=== PATIENT | male | born 1945 | race Caucasian/White ===

== ENCOUNTER → 2024-01-20 08:04 | Outpatient (REF) | payer BC, SELFPAY | LOC: RAD 08:04 | PROVIDERS: ATTENDING PHYSICIAN Surgery Vascular Surgery | DX: I73.9 Peripheral vascular disease, unspecified (principal); I65.23 Occlusion and stenosis of bilateral carotid arteries | CPT/HCPCS: 93880; 93922; 93925; 93978 ==

== ENCOUNTER 2024-01-27 12:28 | Emergency (ER) | payer BC, SELFPAY ==
[2024-01-27 12:39] VITALS: BP 120/67
[2024-01-27 13:07] VITALS: BMI 28.7
[2024-01-27 13:09] VITALS: BP 132/58
[2024-01-27] MEDS: NSS 500 IV (13:36)
[2024-01-27 13:45] LABS: % Basophils 0.3 % (0-2); % Eosinophils 0.2 % (0-6); % Immature Granulocytes 0.5 % (0-0.5); % Lymphocytes 1.5 % (20.5-51.1); % Monocytes 5.3 % (1.7-9.3); % Neutrophils 92.2 % (42.2-75.2); Absolute Immature Granulocytes 0.1 10^3/uL (0-0.05); Absolute Lymphocytes 0.2 10^3/uL (1.2-3.4); Absolute Monocytes 0.7 10^3/uL (0.1-0.6); Absolute Neutrophils 11.6 10^3/uL (1.4-6.5); Hematocrit 48.9 % (39.0-52.0); Hemoglobin 16.5 g/dL (13.0-18.0); Mean Corp Hgb Conc. 33.7 g/dL (33.0-37.0); Mean Corpuscular Hgb 29.7 pg (27.0-31.0); Mean Corpuscular Volume 87.9 fL (80.0-94.0); Mean Platelet Volume 10.6 fL (7.4-10.4); Nucleated Red Blood Cells % 0 % (-); Platelet Count 141 10^3/uL (130-400); Red Blood Cell Count 5.56 10^6/uL (4.70-6.10); White Blood Cell Count 12.6 10^3/uL (4.8-10.8)
[2024-01-27] MEDS: TYLENOL 1000 MG PO (13:51)
[2024-01-27 13:58] LABS: ALT (SGPT) 36 U/L (0-50); AST (SGOT) 29 U/L (17-59); Albumin 4.4 g/dl (3.5-5.0); Alkaline Phosphatase 103 U/L (38-126); Blood Urea Nitrogen 27 mg/dl (9-20); Calcium 9.1 mg/dl (8.4-10.2); Carbon Dioxide 25 mmol/L (22-30); Chloride 106 mmol/L (98-107); Estimated Creatinine Clearance 88 ml/min; Glucose 193 mg/dl (70-99); Lipase 23 U/L (23-300); Potassium 4.2 mmol/L (3.5-5.1); Sodium 142 mmol/L (135-145); Total Bilirubin 0.8 mg/dl (0.2-1.3); Total Protein 6.9 g/dl (6.3-8.2); eGFR > 60.00
[2024-01-27 14:10] VITALS: BP 129/68
[2024-01-27 14:10] LABS: Troponin I < 0.012 ng/ml
--- NOTE | 2024-01-27 14:35 | ED.GENMED ---
History of Present Illness
General
Chief Complaint: Abdominal Symptoms
Time Seen by Provider: 01/27/24 12:55
History of Present Illness
History of Present Illness:
78-year-old male with history of CAD status post CABG, hypertension, diabetes presenting for nausea, vomiting diarrhea. Patient reports symptoms started acutely last evening with nausea and vomiting. He reports upwards of 14 episodes of vomiting,
and then started to have diarrhea. Notes that last episode of vomiting was early this morning, around 3 AM. Last episode of diarrhea was prior to arrival. He went to urgent care, was administered Zofran and told to go to the emergency department.
Denies any associate abdominal pain, notes some soreness and vomiting. Denies any known sick contacts or unusual food. Denies fever. Denies chest pain or difficulty breathing. Reports that he is feeling better after the Zofran at urgent care.
Denies additional acute medical complaints
Past History
Past History
ED Past Medical History: CAD, CT and Other (Bruit migraine headaches, cluster headaches, hypertension, pneumonia, borderline diabetes, diverticulosis, skin cancer, GERD, anxiety)
ED Past Surgical History: Cardiac and Other (Hernia)
Social History
Tobacco: Former smoker
Alcohol: Occasional
Personal:
Living: with family
Family History
Family History: CAD and Other (Father with a stroke)
Phy Exam
Physical Exam
Physical Exam:
GENERAL: Alert , in no apparent distress
EYE: pupils equal and reactive
NECK: Supple
ENT: o/p clr, mmm.
CARDIAC: Regular rate and rhythm .
LUNGS: Clear breath sounds bilaterally, no acute respiratory distress, no wheezes/rales/rhonchi
ABDOMEN: Soft, without focal tenderness
NEUROLOGICAL: Alert and oriented, no focal neuro deficits
SKIN: Warm and dry, skin intact.
MUSCULOSKELETAL: No edema, well perfused.
PSYCH: Normal and appropriate interaction.
Course
Orders/Labs/Results
Orders:
Orders
01/27/24 13:18
0.9% Sodium Chloride 500 ml [Nss] 500 ml IV BOLUS
01/27/24 13:35
Complete Blood Count/With Diff Urgent
Comprehensive Metabolic Panel Urgent
Lipase Urgent
Troponin I Urgent
01/27/24 13:42
Acetaminophen [Tylenol] 1,000 mg PO NOW STA
Abnormal Lab Results
01/27/24
13:35
WBC 12.6 H 10^3/uL
(4.8-10.8)
RDW 15.0 H %
(11.5-14.5)
MPV 10.6 H fL
(7.4-10.4)
Abs Immat Gran (auto) 0.1 H 10^3/uL
(0-0.05)
Absolute Neuts (auto) 11.6 H 10^3/uL
(1.4-6.5)
Absolute Lymphs (auto) 0.2 L 10^3/uL
(1.2-3.4)
Absolute Monos (auto) 0.7 H 10^3/uL
(0.1-0.6)
Neutrophils % 92.2 H %
(42.2-75.2)
Lymphocytes % 1.5 L %
(20.5-51.1)
BUN 27 H mg/dl
(9-20)
Glucose 193 H mg/dl
(70-99)
01/27/24 13:35
01/27/24 13:35
Vital Signs
Initial and Last Documented VS:
Initial Vital Signs
Temp Pulse Resp BP Pulse Ox
98.5 F 103 17 120/67 98
01/27/24 12:39 01/27/24 12:39 01/27/24 12:39 01/27/24 12:39 01/27/24 12:39
Last Documented Vital Signs
Temp Pulse Resp BP Pulse Ox
98.5 F 103 17 129/68 98
01/27/24 12:39 01/27/24 12:39 01/27/24 12:39 01/27/24 14:10 01/27/24 14:10
MDM/Problems Addressed
MDM/Problems Addressed:
78-year-old male with history of CAD status post CABG, hypertension, diabetes presenting for nausea, vomiting, diarrhea. Vital signs on arrival are significant for mild tachycardia.
On exam, patient well-appearing, mildly dry mucous membranes. Benign cardiac and pulmonary exam. No focal tenderness to the abdomen. Symptom presentation and physical exam appears most consistent with viral gastroenteritis. Reassuring that
patient's symptoms are improving. With laboratory analysis and treat patient with IV fluids and Zofran. Do not feel patient requires any advanced imaging with no tenderness to the abdomen.
15:00- Labs show mild leukocytosis, suspect reactive from patient's symptoms. Patient tolerating p.o. Patient continues to express symptom improvement. Labs otherwise unremarkable. Feel safe discharge with continued outpatient supportive
therapy. Strict return precautions communicated and patient verbalized understanding
*Critical Care Note
Total Time (30-74mins, 75-104mins- exclusive of procedures): Not Applicable
ED Attending Note
-
Portions of this chart may have been created with voice recognition software.� Occasional wrong word or��sound alike� substitutions may have occurred due to the inherent limitations of voice recognition software.
Discharge Plan
Departure
Patient Disposition: Home (Routine Discharge)
Date of Disposition: 01/27/24
Time of Disposition: 14:59
Patient with high blood pressure during this ER visit?: No
Condition: Good
Discharge Problem:
Viral gastroenteritis
Instructions: Viral gastroenteritis in adults, Nausea and Vomiting, Adult (DC)
Prescriptions:
New
ondansetron 4 mg Tablet,Disintegrating
4 mg PO TIDPRN PRN (Reason: nausea/vomiting) Qty: 6 0RF
No Action
amlodipine 10 mg Tablet
10 mg PO DAILY
insulin degludec [Tresiba FlexTouch U-100] 100 unit/mL (3 mL) Insulin Pen
10 unit SC HS
Patient Comments:
PT TOOK 5 UNITS 11/17 2299
Trulicity 0.75 mg/0.5 mL Pen Injector
0.75 mg SC MO
Rx Instructions:
Wednesday night
carvedilol 12.5 MG tablet
12.5 mg PO BID
pantoprazole 40 MG tablet,delayed release (DR/EC)
40 mg PO DAILY
Januvia 100 MG tablet
100 mg PO DAILY
Farxiga 5 MG tablet
5 mg PO DAILY
clopidogrel 75 mg Tablet
75 mg PO DAILY
nitroglycerin [Nitrostat] 0.4 mg Tablet, Sublingual
0.4 mg SUBLINGUAL Q5M PRN (Reason: Chest Pain)
ProAir RespiClick 90 mcg/actuation Aerosol Powdr Breath Activated
1 inh INHALATION PRN PRN (Reason: SOB)
atorvastatin 80 MG tablet
80 mg PO HS
alprazolam 0.5 MG tablet
0.5 mg PO DAILY
Rx Instructions:
PT TOOK 0.25 MG TODAY
aspirin 81 MG tablet,chewable
81 mg PO HS
glipizide 5 mg tablet extended release 24hr
5 mg PO DAILY
cholecalciferol (vitamin D3) [Vitamin D3] 125 mcg (5,000 unit) Tablet
125 mcg PO DAILY PRN (Reason: [facility])
polyethylene glycol 3350 [Miralax] 17 gram Powder In Packet
17 g PO DAILY PRN (Reason: CONSTIPATION)
ferrous sulfate [Iron (ferrous sulfate)] 325 mg (65 mg iron) Tablet
325 mg PO DAILY
magnesium citrate 100 mg Tablet
100 mg PO DAILY PRN (Reason: [facility])
coenzyme Q10 [Co Q-10] 400 mg Capsule
400 mg PO DAILY
Referrals:
Ricci Santos MD [Family Provider] -
Activity Restrictions/Additional Instructions:
Please follow-up with your primary care doctor. Return to the emergency department with any development of abdominal pain, persistent nausea and vomiting with inability to tolerate food or liquid by mouth, dizziness or lightheadedness or feeling
like you are going to pass out, chest pain or difficulty breathing, fever, concern for dehydration
Interventions
Interventions:
*Risk Screen - Suicide Last Done: 01/27/24 13:07
*General Assessment Last Done: 01/27/24 12:39
*Neglect/Abuse Screening Last Done: 01/27/24 13:07
ED- Fall Risk Assessment Last Done: 01/27/24 13:10
*ED COVID-19 Vaccine History Last Done: 01/27/24 12:39
*Nursing Disposition Last Done: 01/27/24 16:28
MK-Jvizdh-Bcfqlswqes Assessment Last Done: 01/27/24 13:08
Discharge Date and Time
Discharge Date/Time: 01/27/24 16:29
Print Language: SPANISH
== END 2024-01-27 16:29 | disposition home or self-care (01) ==
LOC: EMR 12:28
PROVIDERS: EMERGENCY PHYSICIAN Student in an Organized Health Care Education/Training Program; FAMILY PHYSICIAN Family Medicine
DX: A08.4 Viral intestinal infection, unspecified (principal); I25.10 Atherosclerotic heart disease of native coronary artery without angina pectoris; I10 Essential (primary) hypertension; E11.9 Type 2 diabetes mellitus without complications; Z87.891 Personal history of nicotine dependence
CPT/HCPCS: 99284; 96360; 80053; 83690; 84484; 85025

== ENCOUNTER → 2024-08-09 14:20 | Outpatient (REF) | payer MEDICARE, OTHER, SELFPAY | LOC: DHVS 14:20 | PROVIDERS: ATTENDING PHYSICIAN Surgery Vascular Surgery | DX: I65.23 Occlusion and stenosis of bilateral carotid arteries (principal); I73.9 Peripheral vascular disease, unspecified | CPT/HCPCS: 93880; 93922; 93925 ==

== ENCOUNTER 2024-08-24 14:19 | Emergency (ER) | payer MEDICARE, OTHER, SELFPAY ==
[2024-08-24 14:27] VITALS: BP 149/99
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
[2024-08-24 14:54] LABS: % Basophils 0.7 % (0-2); % Eosinophils 1.3 % (0-6); % Immature Granulocytes 0.3 % (0-0.5); % Lymphocytes 20.1 % (20.5-51.1); % Monocytes 8.7 % (1.7-9.3); % Neutrophils 68.9 % (42.2-75.2); Absolute Basophils 0.1 10^3/uL (0-0.2); Absolute Eosinophils 0.1 10^3/uL (0-0.7); Absolute Monocytes 0.9 10^3/uL (0.1-0.6); Absolute Neutrophils 6.9 10^3/uL (1.4-6.5); Hematocrit 54.9 % (39.0-52.0); Hemoglobin 17.7 g/dL (13.0-18.0); Mean Corp Hgb Conc. 32.2 g/dL (33.0-37.0); Mean Corpuscular Hgb 29.7 pg (27.0-31.0); Mean Corpuscular Volume 92.3 fL (80.0-94.0); Mean Platelet Volume 10.5 fL (7.4-10.4); Nucleated Red Blood Cells % 0 % (-); Platelet Count 154 10^3/uL (130-400); Red Blood Cell Count 5.95 10^6/uL (4.70-6.10); Red Cell Dist. Width 14.6 % (11.5-14.5); White Blood Cell Count 10.1 10^3/uL (4.8-10.8)
[2024-08-24 15:12] LABS: ALT (SGPT) 40 U/L (0-50); AST (SGOT) 33 U/L (17-59); Albumin 5.2 g/dl (3.5-5.0); Alkaline Phosphatase 112 U/L (38-126); Blood Urea Nitrogen 25 mg/dl (9-20); Calcium 9.9 mg/dl (8.4-10.2); Carbon Dioxide 30 mmol/L (22-30); Chloride 103 mmol/L (98-107); Glucose 171 mg/dl (70-99); Magnesium 2.2 mg/dl (1.6-2.3); Potassium 4.7 mmol/L (3.5-5.1); Sodium 145 mmol/L (135-145); Total Bilirubin 0.7 mg/dl (0.2-1.3); Total Protein 7.7 g/dl (6.3-8.2); eGFR > 60.00
[2024-08-24 15:20] LABS: Lipase 67 U/L (23-300)
[2024-08-24 15:42] LABS: Troponin I < 0.012 ng/ml
[2024-08-24 18:05] VITALS: BP 148/73
== END 2024-08-24 19:01 | disposition home or self-care (01) ==
LOC: EMR 14:19
PROVIDERS: EMERGENCY PHYSICIAN Student in an Organized Health Care Education/Training Program; FAMILY PHYSICIAN Surgery Vascular Surgery
DX: R07.9 Chest pain, unspecified (principal); I25.10 Atherosclerotic heart disease of native coronary artery without angina pectoris; I10 Essential (primary) hypertension; K21.9 Gastro-esophageal reflux disease without esophagitis; Z85.828 Personal history of other malignant neoplasm of skin; Z87.891 Personal history of nicotine dependence; Z95.5 Presence of coronary angioplasty implant and graft; Z82.49 Family history of ischemic heart disease and other diseases of the circulatory system
CPT/HCPCS: 99285; 71046; 80053; 83690; 83735; 84484; 85025; 93005

== ENCOUNTER → 2025-02-26 06:58 | Outpatient (REF) | payer MEDICARE, OTHER, SELFPAY | LOC: RAD 06:58 | PROVIDERS: ATTENDING PHYSICIAN Physician Assistant; FAMILY PHYSICIAN Family Medicine; REFERRING PHYSICIAN Surgery Vascular Surgery | DX: I73.9 Peripheral vascular disease, unspecified (principal); I65.23 Occlusion and stenosis of bilateral carotid arteries | CPT/HCPCS: 93880; 93922; 93925; 93978 ==

== ENCOUNTER → 2025-03-02 13:56 | Outpatient (REF) | payer MEDICARE, OTHER, SELFPAY | LOC: RAD 13:56 | PROVIDERS: ATTENDING PHYSICIAN Surgery Vascular Surgery; FAMILY PHYSICIAN Family Medicine | DX: I65.21 Occlusion and stenosis of right carotid artery (principal) | CPT/HCPCS: 70496; 70498; Q9967 ==

== ENCOUNTER 2025-04-12 08:12 | Inpatient (IN) | payer MEDICARE, OTHER, SELFPAY ==
[2025-04-05 09:45] VITALS: BMI 29.2
[2025-04-05 10:42] LABS: Hematocrit 52.2 % (39.0-52.0); Hemoglobin 17.1 g/dL (13.0-18.0); Mean Corp Hgb Conc. 32.8 g/dL (33.0-37.0); Mean Corpuscular Volume 90.3 fL (80.0-94.0); Nucleated Red Blood Cells % 0 % (-); Platelet Count 141 10^3/uL (130-400); Red Cell Dist. Width 14.5 % (11.5-14.5)
[2025-04-05 10:52] LABS: INR 0.91; PT 12.8 Sec (11.4-14.6)
[2025-04-05 10:53] LABS: APTT 30.6 Sec (23.4-35.0)
[2025-04-05 10:56] LABS: Blood Urea Nitrogen 18 mg/dl (9-20); Calcium 9.5 mg/dl (8.4-10.2); Carbon Dioxide 32 mmol/L (22-30); Chloride 103 mmol/L (98-107); Estimated Creatinine Clearance 101 ml/min; Glucose 88 mg/dl (70-99); Potassium 4.8 mmol/L (3.5-5.1); Sodium 141 mmol/L (135-145); eGFR > 60.00
[2025-04-12 08:34] VITALS: BMI 28.5
[2025-04-12 08:56] VITALS: BP 153/77
[2025-04-12 09:18] LABS: Glucose - Point of Care 136 mg/dl (70-99)
[2025-04-12] MEDS: PERIDEX 0.12% ORAL RINSE 15 ML PO (09:22)
[2025-04-12] MEDS: BACTROBAN NASAL 1 GRAM NASAL (09:22)
--- NOTE | 2025-04-12 09:45 | W.SUR.PREOP ---
Pre-Operative Surgical Note
-
I have examined this patient prior to the performance of the scheduled procedure.
The patient's condition is unchanged from the time of the current History and
Physical and the patient is able to undergo the scheduled procedure.
[2025-04-12 11:51] LABS: ACT-LR - POC 392 Seconds (116-155)
--- NOTE | 2025-04-12 12:31 | OR.RPT ---
Operative Report
Operative Report
PROCEDURE DATE: 04/12/2025
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
Postoperative diagnosis: same
Procedure:
1. Open exposure of right common carotid artery.
2. Transcarotid right carotid artery revascularization with stent (TCAR) with Enroute 7-9 mm reverse tapered x 30mm self-expanding stent, and utilizing Enroute CHECK CASHIER flow reversal intraprocedural neuro protection.
3. Intraoperative EEG/SSEP monitoring.
4. Supervision and interpretation
Surgeon: Randy
Receptionist/Telephone Operator: YENNIFER Hoff, required for all aspects of procedure including assistance with traction/countertraction, assistance with closure.
Complications: None
Anesthesia: General
Flow Reversal Time: 6 minutes
Fluoroscopy:
Time: 2.9 minutes
Dose: 27mGy
DAP: 4.44
Indications for procedure:
History of right carotid endarterectomy. Initial postoperative imaging had demonstrated excellent result. Over the course of months to years, surveillance imaging demonstrated progressive severe recurrent stenosis. Risk/benefits/alternatives of
TCAR were fully discussed. Patient understood and wished to proceed.
Description of procedure:
Patient was identified brought to the operating room placed on the table in supine position. After the adequate administration of anesthesia and perioperative antibiotics he was prepped and draped in the standard surgical fashion. A standard
preoperative timeout was undertaken and everybody was in agreement the plan. A longitudinal incision was made at the base of the right neck between the heads of the sternocleidomastoid muscle just superior to the clavicle. This incision was
carried through the skin subcutaneous tissue. Using the electrocautery dissection was carried through the platysma muscle layer and then in the plane between the heads of the sternocleidomastoid muscle. Then using a combination of sharp dissection
with the Metzenbaum scissors and electrocautery I dissected along the anterior medial border of the internal jugular vein. The common carotid artery was identified and carefully dissected away from the surrounding structures take great care to
avoid any injury to the structures. A vessel loop was passed around it. The common carotid artery was dissected circumferentially only in the proximal portion of the exposed artery, and the anterior surface was dissected for another 2 cm. Next, a
5-0 Prolene pursestring stitch was placed on the anterior middle surface of the common carotid artery at the anticipated puncture/cannulation site. The patient was given 9000 units of intravenous heparin.
Next, the left common femoral vein was punctured with a micropuncture kit under direct duplex ultrasound guidance. An 8 [place] venous sheath was placed over 0.035 inch wire into the vein. The sheath was flushed.
Next, while maintaining anterior tension on the vessel loop (single looped), the common carotid artery was punctured with a micropuncture needle (premarked) to only 1 cm and a premarked 0.014 inch wire was inserted and then the needle was exchanged
out for a premarked micropuncture sheath and advanced to 3 cm nick. The dilator and wire were then removed. Right anterior oblique angiogram was performed. This delineated the carotid bifurcation. It confirmed the severe stenosis in the proximal
internal carotid artery. The carotid bifurcation was marked on the screen. Note the external carotid artery was chronically occluded. I then advanced a 0.035 inch wire with a J curve at the tip. This was stopped just short of the bifurcation. I
then exchanged the micropuncture sheath out for the 8 [place] arterial [place] [address] sheath, which was advanced to the footplate under fluoroscopy with careful vigilance of the distal tip of the wire. Once advanced to the footplate, the introducer and
wire were removed. The tension from the vessel loop was released. And the sheath was secured to the skin with silk suture. The sheath was burped back and also flushed carefully. Next repeat imaging was undertaken confirming the best angulation
of the gantry for imaging. At this point, the angioplasty balloon and stent were prepared. We pause to confirm the plan regarding balloon/stent, and confirmed adequate ACT over 250. Next, I connected the arterial sheath to the venous sheath with
the filter section. As such passive flow reversal was initiated. There were no evidence of any EEG or SSEP changes. We flushed the venous sheath to confirm adequate passive flow reversal.
At this point given that we were otherwise ready, I tightened my double looped vessel loop on the common carotid artery thereby initiating active flow reversal. Again I flushed the venous sheath to confirm active flow reversal. There was no EEG or
SSEP changes. I now used a precurved 0.014 inch wire and roadmap assisted fluoroscopy guidance to cannulate the internal carotid artery carefully. I was able to gain access into the distal cervical/proximal intracranial internal carotid artery.
Next I used a balloon which was a 5 mm x 30 mm standard angioplasty balloon. I then pre-angioplastied the stenosis. The patient had been given glycopyrrolate to prevent any baroreceptor mediated bradycardia. The patient's blood pressure had also
been optimized after discussion with our anesthesiology colleagues prior to initiation of flow reversal. I then quickly exchanged out my balloon catheter for the stent 7-9 mm reverse tapered x 30mm Enroute stent. The stent was positioned under
roadmap guidance. When I was happy with the positioning I then unsheathed in the standard fashion. The stent delivery device was then removed. Completion angiography was undertaken after 1 to 2 minutes of waiting after deployment of the stent for
the flow reversal to take effect. Completion angiogram demonstrated excellent result and it was done in 2 obliquities to confirm. No residual stenosis was noted. Good intracranial filling was noted. At this point I was very satisfied. The 0.014
inch wire was then removed from the internal carotid artery. Next, the common carotid artery was unclamped. Finally I disconnected the flow reversal circuit.
Now, I tied down my 5-0 Prolene pursestring suture on the common carotid artery while removing the sheath. We gave protamine to reverse the heparin. I irrigated the incision site and confirmed full hemostasis. Then, we closed in layers using
single lmphhd-ed-isahp 2-0 Vicryl to reapproximate the sternocleidomastoid heads. Then used 3-0 Vicryl platysma muscle running layer followed by 4-0 Monocryl subcuticular running stitch. Dermabond was applied. The femoral vein sheath was also
removed and manual pressure was applied to that site and hemostasis was noted there as well. The patient tolerated the procedure well. He awoke moving all 4 extremities to command.
[2025-04-12 12:45] VITALS: BP 133/73; BP 153/77
[2025-04-12 13:00] VITALS: BP 152/72
[2025-04-12] MEDS: DILAUDID 0.25 MG IV (13:01)
[2025-04-12 13:02] LABS: Glucose - Point of Care 143 mg/dl (70-99)
[2025-04-12] MEDS: SUBLIMAZE 25 MCG IV (13:12)
[2025-04-12 13:15] VITALS: BP 147/73
[2025-04-12 13:30] VITALS: BP 153/73
[2025-04-12 13:43] LABS: Blood Urea Nitrogen 12 mg/dl (9-20); Calcium 8.8 mg/dl (8.4-10.2); Carbon Dioxide 26 mmol/L (22-30); Chloride 106 mmol/L (98-107); Estimated Creatinine Clearance 101 ml/min; Glucose 151 mg/dl (70-99); Potassium 4.3 mmol/L (3.5-5.1); Sodium 138 mmol/L (135-145); eGFR > 60.00
[2025-04-12 13:44] LABS: Hematocrit 47.6 % (39.0-52.0); Hemoglobin 15.9 g/dL (13.0-18.0); Mean Corp Hgb Conc. 33.4 g/dL (33.0-37.0); Mean Corpuscular Volume 88.6 fL (80.0-94.0); Platelet Count 116 10^3/uL (130-400); Red Cell Dist. Width 14.4 % (11.5-14.5)
[2025-04-12] MEDS: CARDENE 200 IV (14:01)
[2025-04-12] MEDS: NSS 1000 IV (14:04)
--- NOTE | 2025-04-12 14:23 | PTCARENOTE ---
Rec'd pt. from PACU handoff completed w. MATHEMATICS EDUCATION PROFESSOR.
Assessment WNL, all sites intact.
Focally intact, normocephalic, mentating approp.
See Assessment flow sheet for further details.
--- NOTE | 2025-04-12 15:32 | CON.INTV ---
Addendum entered and electronically signed by Ángel Bernal MD 04/13/25 10:25:
04/13
Patient schedule for discharge home today.
Windows Systems Administrator service will be available as needed.
Original Note:
Consultation
Consultation Request
Date/Time Consultation Requested: 04/12/2025
Date/Time Consultation Performed: 04/12/2025
Medical History
-
Chief Complaint: Carotid artery disease
History of Present Illness:
Patient is a very pleasant 79-year-old gentleman with known history of carotid artery disease status post right carotid endarterectomy in the past. Patient has had progressive worsening of stenosis and was following up with vascular surgery as
outpatient. In view of worsening stenosis, transcarotid revascularization was recommended and patient was admitted to the hospital for TCAR. Postprocedure, patient was admitted to the ICU and glycerin operator consultation was requested for further
input.
Past Medical History
Past Medical History: None (COPD. Former smoker [id number] quit 2009. CAD with a history of stent. Hyperlipidemia. Diabetes. Osteoarthritis. Anxiety. Migraines. Reflux. ED. Squamous cell skin cancer surgery. Umbilical hernia repair.
CABG 2019.)
Social History
Tobacco: Former Smoker ([id number] quit 2009)
Drug: None
Personal:
Living: With Family
Occupational Exposures: No known asbestos exposure
Environmental Exposures: No known tuberculosis exposure
Family History
Family History: Other (CVA. Diabetes. CAD.)
Allergies / Home Medications
Allergies
Allergy/AdvReac Type Severity Reaction Status Date / Time
codeine (Codeine) Allergy Itching, Verified 04/12/25 08:36
nausea,
numbness,
confusion
metformin Allergy severe Verified 04/12/25 13:35
stomach
pain/GI
upset/
Diarrhea
oxycodone HCl (From Percocet) Allergy Confusion, Verified 04/12/25 08:36
dizzy,
itchy
Home Medications
�Medication �Instructions �Recorded �Confirmed �Last Taken �Type
amlodipine 10 mg tablet 10 mg PO DAILY Blood pressure 05/29/22 04/12/25 04/12/25 07:15 History
carvedilol 12.5 mg tablet 12.5 mg PO BID Blood pressure 05/29/22 04/12/25 04/12/25 07:15 History
dapagliflozin propanediol 5 mg 5 mg PO DAILY Kidney Disease 05/29/22 04/12/25 04/08/25 History
tablet (Farxiga)
dulaglutide 0.75 mg/0.5 mL 0.75 mg SC CORTES Diabetes 05/29/22 04/12/25 04/08/25 History
subcutaneous pen injector
(Trulicity)
insulin degludec 100 unit/mL (3 12 unit SC HS Diabetes 05/29/22 04/12/25 04/11/25 22:00 History
mL) subcutaneous pen (Tresiba
FlexTouch U-100 insulin)
pantoprazole 40 mg tablet,delayed 40 mg PO DAILY Gastrointestinal 05/29/22 04/12/25 04/12/25 07:15 History
release issue
albuterol sulfate 90 mcg/actuation 1 inh inhalation PRN PRN SOB 08/19/22 04/03/25 Unknown History
breath activated powder inhaler
(ProAir RespiClick)
alprazolam 0.5 mg tablet 0.5 mg PO BID PRN anxiety 08/19/22 04/12/25 04/12/25 07:15 History
aspirin 81 mg chewable tablet 81 mg PO HS Blood Clot 08/19/22 04/12/25 11/17/22 22:00 History
Prevention/Tx
atorvastatin 80 mg tablet 80 mg PO HS High cholesterol 08/19/22 04/12/25 04/11/25 22:00 History
nitroglycerin 0.4 mg sublingual 0.4 mg sublingual Q5M PRN Chest 08/19/22 04/03/25 Unknown History
tablet (Nitrostat) Pain
glipizide 5 mg tablet, extended 5 mg PO DAILY Diabetes 08/27/22 04/12/25 04/11/25 07:15 History
release 24 hr
cholecalciferol (vitamin D3) 125 125 mcg PO DAILY PRN takes 11/16/22 04/12/25 Unknown History
mcg (5,000 unit) tablet (Vitamin occasionally
D3)
coenzyme Q10 400 mg capsule (Co 400 mg PO DAILY PRN takes 11/18/22 04/03/25 Unknown History
Q-10) occasionally
aflibercept 2 mg/0.05 mL 2 mg intravitreal Q12W Eye 04/03/25 04/12/25 04/10/25 History
intravitreal solution for Condition
injection (Eylea)
bdaosnfcno-fzwjlvr-vbueshsx 50 1 cap PO Q4H PRN headaches 04/03/25 04/12/25 04/09/25 History
mg-325 mg-40 mg capsule
vit C 250 mg-vit E 90 mg-zinc 40 1 tab PO BID Supplement 04/03/25 04/12/25 04/11/25 History
mg-copper 1 bd-yjomgs-yhbuhy 2200
capsule (PreserVision AREDS-2)
clopidogrel 75 mg tablet 75 mg PO DAILY Blood Clot 04/12/25 04/12/25 04/12/25 07:15 History
Prevention/Tx
Review of Systems
-
Hematologic/Lymphatic: Other (All 14 systems reviewed and negative except as stated above in the history of present illness.)
Vitals / Labs / Diagnostic Testing
Vital Signs
Temp Pulse Resp BP Pulse Ox
97.6 F 75 0 153/73 95
04/12/25 13:30 04/12/25 13:15 04/12/25 13:15 04/12/25 13:30 04/12/25 15:28
Lab Data
04/12/25 13:07
04/12/25 13:07
Diagnostic Testing:
Physical Exam
-
HEENT: Normocephalic
Cardiovascular: S1/S2
Respiratory: Clear
GI: Soft and Non Distended
Neurology: Awake, Alert and Oriented
Skin: Warm
General: Comfortable
Assessment
-
Patient is a 79-year-old male with history of recurrent right carotid artery stenosis despite endarterectomy, s/p transcarotid right carotid artery revascularization (TCAR) by vascular surgery service, POD #0
Continue observation following procedure
Follow neurovascular checks per protocol
ASA, Plavix, amlodipine and Lipitor on board
Follow BP monitoring and parameters as set by primary team
Cardiac history reviewed
Monitor on telemetry
Pain control per protocol
RASS goal 0
64-cfbc-yrgs smoking history.
CXR reviewed indicating no acute disease
Prior PFTs suggestive of borderline obstructive airway disease
Encouraged IS
Diet advancement per protocol
Aspiration precautions
GI prophylaxis/GERD: Protonix
Cr at baseline, follow UO
Critical I/Os
Void trials
Replete electrolytes as needed
No signs/symptoms suspicious for infectious etiology at this time
Will observe off antibiotics for now
Follow temperatures/CBC
Hb and platelets postoperatively stable
DVT prophylaxis: Subcu heparin
Other medical diagnoses:
- CAD, NSTEMI, s/p PCI (2009)
- s/p CABG (01/2020) for Multivessel CAD. Continue follow-up with cardiology service as outpatient
- Right CEA 2021
- History of smoking, [id number]-[id number], quit 2009, COPD. Patient is established with a chemical milling processor as outpatient and is not on any inhalers at baseline
- Hyperlipidemia
- Diabetes
- GERD
- Squamous cell cancer, status post surgery
- Umbilical hernia repair
- Anxiety. Resume Xanax
Critical Care time [58 ] mins -- The patient is admitted for acute critical illness for the treatment of vital organ failure and/or prevention of further life-threatening conditions. Total care includes time spent in review of history, physical
exam, medications, hemodynamic/ventilator parameters, laboratory data, imaging and discussion with house staff, pharmacy, respiratory therapy, ship engineer, and nursing
Data:
CXR 03/2025: No radiographic evidence of acute cardiopulmonary abnormality.
CT Head/Neck 02/2025: CT Brain: No acute intracranial process.
CTA Head: No significant arterial stenosis. Atherosclerotic calcifications of the bilateral carotid siphons without significant stenosis. No aneurysm.
CTA Neck: Postoperative changes of right carotid endarterectomy with approximately 75% stenosis of the right carotid bifurcation secondary to noncalcified atherosclerotic plaque. There is moderate atherosclerotic calcifications of the left carotid
bifurcation/proximal ICA with less than 30% stenosis by NASA criteria.
CT Chest 09/2022: 1. 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 Fracture of a majority of the sternal wires with mild diastasis of the inferior sternum, approximately 7 mm.
2. No acute pulmonary process.
3. Coronary and aortic atherosclerosis.
PFT 01/2020: Borderline obstruction with reactive small airways disease, mild gas exchange defect.
ECHO 01/2020: Normal left ventricular size and systolic function. No regional wall motion
abnormalities are seen. LV ejection fraction is 55-60% by visual assessment.
Mild concentric left ventricular hypertrophy. Normal diastolic function.
There is possible anterior mitral valve prolapse. Mild mitral regurgitation.
[2025-04-12 16:25] LABS: Glucose - Point of Care 160 mg/dl (70-99)
[2025-04-12] MEDS: DILAUDID 0.5 MG IV ×2 (16:26→21:01)
[2025-04-12] MEDS: XANAX 0.5 MG PO ×2 (16:36→22:06)
[2025-04-12] MEDS: NOVOLOG FLEXPEN-MODERATE RESISTANCE 1 UNITS SC (17:01)
--- NOTE | 2025-04-12 20:31 | PTCARENOTE ---
Assumed care of pt at 1900. Pt is A/O x4, neurological checks ongoing Q1 hours, WNL so far, see flowsheet on worklist for details. LLE neurovascular checks/site checks ongoing Q4 hours, see post cath flowsheet for details. SR on monitor, SpO2 93% on
2LNC, see nursing shift assessment flowsheet for further assessment details. Restarted on Cardene drip at approx 1945 d/t SBP going into 200s even when pt lying still, at this time SBP now down to 140s.
[2025-04-12] MEDS: LIPITOR 80 MG PO (21:00)
[2025-04-12] MEDS: COREG 12.5 MG PO (21:00)
[2025-04-12] MEDS: LOW STRENGTH ASPIRIN 81 MG PO (21:00)
[2025-04-12] MEDS: HEPARIN 5000 UNITS SC (21:00)
[2025-04-12] MEDS: LANTUS 0.12 UNITS SC (22:06)
[2025-04-12 22:08] LABS: Glucose - Point of Care 159 mg/dl (70-99)
--- NOTE | 2025-04-13 00:30 | PTCARENOTE ---
Midnight assessment unchanged, neurological and neurovascular assessments unchanged. Cardene turned off at 2100. Medicated for pain with PRN Dilaudid, see EMAR.
[2025-04-13 03:49] VITALS: BMI 28.8
[2025-04-13 04:01] LABS: Hematocrit 44.8 % (39.0-52.0); Hemoglobin 15.2 g/dL (13.0-18.0); Mean Corp Hgb Conc. 33.9 g/dL (33.0-37.0); Mean Corpuscular Volume 88.5 fL (80.0-94.0); Platelet Count 129 10^3/uL (130-400); Red Cell Dist. Width 14.3 % (11.5-14.5)
[2025-04-13 04:06] LABS: INR 1.03; PT 14.0 Sec (11.4-14.6)
[2025-04-13 04:07] LABS: APTT 31.5 Sec (23.4-35.0)
[2025-04-13] MEDS: NSS 1000 IV (04:30)
[2025-04-13 04:48] LABS: Blood Urea Nitrogen 17 mg/dl (9-20); Calcium 8.1 mg/dl (8.4-10.2); Carbon Dioxide 24 mmol/L (22-30); Chloride 106 mmol/L (98-107); Estimated Creatinine Clearance 101 ml/min; Glucose 167 mg/dl (70-99); Potassium 4.4 mmol/L (3.5-5.1); Sodium 136 mmol/L (135-145); eGFR > 60.00
--- NOTE | 2025-04-13 05:12 | PTCARENOTE ---
0400 assessment unchanged. Trialed pt on room air but SpO2 dropped to 88% while asleep, placed back on 2LNC, now 95%. Has remained off Cardene since it was turned off at 2100.
--- NOTE | 2025-04-13 07:14 | PTCARENOTE ---
Assumed care of pt. approx 0700.
Site checks WNL.
Focally intact, normocephalic, no neurological deficits noted upon exam.
Hemodynamically stable.
Plan of care explained, all questions answered at this point, pain well controlled.
[2025-04-13] MEDS: COREG 12.5 MG PO (07:31)
[2025-04-13] MEDS: NOVOLOG FLEXPEN-MODERATE RESISTANCE SC (07:31)
[2025-04-13] MEDS: NORVASC 10 MG PO (07:32)
[2025-04-13] MEDS: PLAVIX 75 MG PO (07:32)
[2025-04-13] MEDS: PROTONIX 40 MG PO (07:32)
[2025-04-13] MEDS: FARXIGA 5 MG PO (07:33)
[2025-04-13] MEDS: HEPARIN 5000 UNITS SC (07:33)
[2025-04-13 07:35] LABS: Glucose - Point of Care 141 mg/dl (70-99)
[2025-04-13 07:55] VITALS: BP 151/70
[2025-04-13] MEDS: XANAX 0.5 MG PO (08:18)
--- NOTE | 2025-04-13 08:58 | PTCARENOTE ---
VASC surg rounds completed.
-D/C art line
-OOB to chair
-DISPO plan for later this afternoon
[2025-04-13 09:11] VITALS: BP 137/67
--- NOTE | 2025-04-13 09:14 | W.PN.VS ---
Addendum entered and electronically signed by David Velasquez III, MD 04/13/25 11:37:
This patient was seen and examined in collaboration with JARROD Kohler. I agree with the history and physical exam as well as the assessment and plan.
Signed:
David Velasquez III, MD
Vascular Surgery
[facility]
Original Note:
Today's Communication / Plan
-
Seen and assessed with Dr. Velasquez
Assessment/Plan
-
Postop day 1 right TCAR
Plan:
DC A-line
Out of bed/ambulate
DC IV fluids
Regular diet
Home medications
Likely discharge later today
Subjective Data
-
Date of Service: April 13, 2025
Patient seen at bedside today with Dr. Velasquez. Patient offers no complaints at this time. No events overnight. Cardene off since last evening.
Objective Data
-
Vital Signs
Temp Pulse Resp BP Pulse Ox
97.9 F 89 15 151/70 93
04/13/25 07:22 04/13/25 07:32 04/13/25 07:00 04/13/25 07:55 04/13/25 08:00
Intake and Output
04/12/25 04/13/25 04/14/25
06:59 06:59 06:59
Intake Total 1642.5 / 1722.5 180 / 180
Output Total 1260 / 1260 400 / 400
Balance 382.5 / 462.5 -220 / -220
Intake:
Oral fluids 250 / 250 100 / 100
IV fluids (Total) 1392.5 / 1472.5 80 / 80
Cardene 37.5 / 37.5
Nss 1,000 ml @ 80 mls/hr IV . 1280 / 1360 80 / 80
[id number] OMARI Rx#:[id number]
normosol 75 / 75
IV piggybacks 0 / 0
Output:
Urine, Voided 1260 / 1260 400 / 400
Lab Results
04/13/25 03:44
04/13/25 03:44
Calcium 8.1 mg/dl (8.4-10.2) L 04/13/25 03:44
Physical Exam
-
AAO x 3
No tachypnea on 2 L
No tachycardia
Abdomen soft
Neck site clean, dry, intact, soft, 5
Groin site clean, dry, intact, soft, flat
Follows all commands, tongue is midline
[2025-04-13 10:00] VITALS: BP 116/57
--- NOTE | 2025-04-13 11:51 | CM ---
Initial assessment completed with patient who lives with his in a 2 story home , no basement, B/B on 2nd, 2 steps to enter. PROGRAM REP patient was independent in ADL's and ambulation with occasional use of a SPC, drives. No other DME in the home. No
in-home services. Was in the [employer]. No VA benefits. Does have a HC-POA. No psychiatric hospitalizations. PCP is Dr. Ricci Santos and Pharmacy is [facility] on [address] in [place]. Discharge POC: Anticipate home with no needs.
--- NOTE | 2025-04-13 11:56 | CM ---
Patient has been medically cleared for discharge to home with no additional skilled services. Patient's will transport home.
== END 2025-04-13 13:06 | disposition home or self-care (01) | DRG 36 ==
LOC: ICU 08:12
PROVIDERS: Nurse Practitioner; ADMITTING PHYSICIAN Surgery Vascular Surgery; CONSULT PHYSICIAN Internal Medicine; PRIMARYCARE PHYSICIAN Family Medicine
PROC: 037K3DZ Dilation of Right Internal Carotid Artery with Intraluminal Device, Percutaneous Approach (ICD-10-PCS; 2025-04-12)
DX: I65.23 Occlusion and stenosis of bilateral carotid arteries (principal); J44.9 Chronic obstructive pulmonary disease, unspecified; Z87.891 Personal history of nicotine dependence; I25.10 Atherosclerotic heart disease of native coronary artery without angina pectoris; E11.9 Type 2 diabetes mellitus without complications; F41.9 Anxiety disorder, unspecified; G43.909 Migraine, unspecified, not intractable, without status migrainosus; Z88.8 Allergy status to other drugs, medicaments and biological substances; Z79.899 Other long term (current) drug therapy; Z95.1 Presence of aortocoronary bypass graft; K21.9 Gastro-esophageal reflux disease without esophagitis; Z79.02 Long term (current) use of antithrombotics/antiplatelets; Z79.4 Long term (current) use of insulin
CPT/HCPCS: 36415; 37215; 71046; 80048; 82962; 85025; 85027; 85610; 85730; 86850; 86900; 86901; 93005; 95938; 95941; 95955; C1725; C1769; C1876; C1884; C1894; Q9967

== ENCOUNTER → 2025-05-17 06:54 | Outpatient (REF) | payer MEDICARE, OTHER, SELFPAY | LOC: RAD 06:54 | PROVIDERS: ATTENDING PHYSICIAN Registered Nurse; FAMILY PHYSICIAN Family Medicine | DX: I65.23 Occlusion and stenosis of bilateral carotid arteries (principal) | CPT/HCPCS: 93880 ==